=== PATIENT | female | born 1965 | race Native Hawaiian/Other Pacific Islander ===

== ENCOUNTER 2018-01-27 14:30 | Emergency (ER) | payer OTHER, SELFPAY ==
[2018-01-27 14:36] VITALS: BP 163/91; PULSE 95; RESP 16; O2SAT 98
--- NOTE | 2018-01-27 16:33 | ED.BACK ---
HPI - Back Pain/Injury General Chief Complaint: Back Pain/Injury Stated Complaint: NACK AND BACK PAIN, LEFT ARM NUMB Time Seen by Provider: 01/27/18 15:58 Source: patient Mode of arrival: ambulatory Limitations: no limitations History of Present Illness HPI Narrative: Patient is a 52-year-old female who presents with left-sided back and neck pain. She says been ongoing for the last 3 weeks it started in a car ride in [place]. She went to physical therapy. Today it is hurting more than normal. She has numbness and tingling down her left arm. It hurts every time she moves. She usually just takes naproxen for she said she took earlier today but now the pain is worse. MD Complaint: back pain Location: thoracic spine Severity: moderate Quality: burning and sharp Relieving factors: none Related Data Previous Rx's Medication Instructions Recorded amoxicillin-pot clavulanate 875 mg PO BID #20 tab 10/30/17 [Augmentin] cyclobenzaprine 5 mg PO BID #10 tab 01/27/18 Allergies Allergy/AdvReac Type Severity Reaction Status Date / Time No Known Drug Allergies Allergy Verified 01/27/18 16:37 Review of Systems Review of Systems GENERAL: Denies chills, fatigue, malaise, fever, sweats, travel HEENT: Denies sinus pain, ear pain, sore throat, difficulty swallowing, neck pain RESPIRATORY: Denies dyspnea, cough, wheezing, hemoptysis, sputum. CARDIOVASCULAR: Denies chest pain, palpitations, orthopnea, edema GASTROINTESTINAL: Denies nausea, vomiting, abdominal pain, diarrhea, constipation, melena. : Denies dysuria, frequency, incontinence, hematuria, urinary retention, flank pain. MUSCULOSKELETAL: See HPI SKIN: No rash, no erythema, no pruritus NEUROLOGIC: Numbness and tingling an left hand no weakness 12 point review of systems is negative except for those stated above and HPI PFSH Social History Smoking Status: Never smoker Exam Initial Vital Signs Initial Vital Signs: Vital Signs Pulse Rate 95 H 01/27/18 14:36 Respiratory Rate 16 01/27/18 14:36 Blood Pressure 163/91 H 01/27/18 14:36 Pulse Oximetry 98 01/27/18 14:36 Const General: cooperative and healthy appearing [facility] Head: normal to inspection, normocephalic and atraumatic Eyes General: appearance normal, both eyes and all related structures Resp Effort & Inspection: normal respiratory effort, able to speak in complete sentences, no respiratory distress and no use of accessory muscles Auscultation: clear to auscultation bilaterally, no rales, no rhonchi and no wheezes Cardio Rate: regular rate Rhythm: regular rhythm Heart Sounds: no click, no gallops, no murmurs and no rubs Pulses: normal peripheral pulses Back/Spine/Pelvis Cervical Spine: normal cervical lordosis and cervical ROM normal Thoracic/Lumbar Spine: thoracic and lumbar spine normal to inspection and other (Tender over the trapezius muscle and upper thoracic area. Pain is reproducible with movement and palpation) Skin General: no rashes or lesions noted, No jaundice and No petechiae Neuro General: alert, awake and oriented x3 Cranial Nerves: CN's II-XI intact bilaterally Motor: strength 5/5 throughout Extrem General: normal to inspection, full ROM and no clubbing, cyanosis or edema Course Orders Ordered: Discontinued Medications Ketorolac Tromethamine (Toradol) 60 mg IM NOW ONE Stop: 01/27/18 16:34 Last Admin: 01/27/18 16:42 Dose: 60 mg Vital Signs - 8 hr 01/27/18 14:36 01/27/18 16:57 Pulse Rate 95 H 81 Respiratory Rate 16 15 Blood Pressure 163/91 H 145/81 H Pulse Oximetry 98 100 Discharge Plan Departure Patient Disposition: Home, Self-Care Clinical Impression: Thoracic back pain Discharge Date/Time: 01/27/18 16:59 Interventions: ED Discharge Assessment Last Done: 01/27/18 16:57 Instructions: DI for Muscle Spasm Activity Restrictions/Additional Instructions: *You have been diagnosed with muscle spasm of the thoracic back *What to do: Heating pad, increase activity as tolerated, may require physical therapy *Continue to take medications as directed At your request you're medications have been faxed to [facility] in [place] -take cyclobenzaprine twice a day as needed for muscle spasm it does cause drowsy *Follow up with your primary care provider in 2-3 days *Return to ER if you should have increasing pain, numbness, tingling, weakness or any new, worsening or concerning symptoms Prescriptions: New cyclobenzaprine 5 mg tablet 5 mg PO BID Qty: 10 RF: 0 No Action amoxicillin-pot clavulanate [Augmentin] 875 MG/125 MG tablet 875 mg PO BID Qty: 20 RF: 0 Referrals: Natalia Camilo [Primary Care Provider] -
[2018-01-27] MEDS: KETOROLAC 60 MG/2 ML VIAL IM (16:42)
[2018-01-27 16:57] VITALS: BP 145/81; PULSE 81; RESP 15; O2SAT 100
== END 2018-01-27 16:59 | disposition home or self-care (01) ==
PROVIDERS: Emergency Provider Emergency Medicine; PCP Physician Assistant Medical
DX: M54.6 Pain in thoracic spine (principal)
CPT/HCPCS: 96372; 99282; 99283; J1885

== ENCOUNTER → 2021-04-14 15:50 | Outpatient (CLI) | payer OTHER, SELFPAY ==
--- NOTE | 2021-04-14 15:52 | DI.US.S_ITS ---
PROCEDURE: US PELVIC COMPLETE INDICATIONS: PMB TECHNIQUE: Real-time scanning was performed of the pelvic organs, with image documentation. Additional endovaginal scanning was necessary due to incomplete visualization of the adnexal and endometrial structures by transabdominal scanning. COMPARISON: None. FINDINGS: Uterus: Uterus is normal in size at 9.7 x 4.5 x 6.2 cm. The endometrium measures 13.3 mm in combined thickness. 3.7 cm intramural fibroid. Ovaries: Left ovary is not visualized. Right ovary is normal measuring 2.2 x 1.0 x 1.9 cm. Other: No pathologic free abdominal or pelvic fluid. IMPRESSION: 1. Thickened endometrial complex in this postmenopausal female. Endometrial biopsy is recommended. 2. 3.7 cm anterior intramural fibroid. Dictated by: Quincy HUSSEIN Interpreted: Lydia Pardo MD on 04/14/2021 at 16:43 Transcribed by: CAITLIN on 04/14/2021 at 16:44 Approved by: Lydia Pardo M.D. on 04/14/2021 at 17:01
== END ==
PROVIDERS: PCP Physician Assistant Medical; Referring Provider Obstetrics & Gynecology; Visit Provider Obstetrics & Gynecology
DX: N95.0 Postmenopausal bleeding (principal); D25.1 Intramural leiomyoma of uterus
CPT/HCPCS: 76830; 76856